=== PATIENT | male | born 1975 | race Caucasian/White ===

== ENCOUNTER → 2018-01-16 14:37 | Outpatient (CLI) | payer OTHER, SELFPAY ==
--- NOTE | 2018-01-16 | DI.RAD.S_ITS ---
PROCEDURE: XR HIP W PEL IF DONE RT 2V INDICATIONS: RIGHT HIP PAIN TECHNIQUE: AP pelvis with lateral view(s) of the right hip(s). COMPARISON: None. FINDINGS: Bones: No fracture or suspicious bone lesion. Pelvic rim is intact. Sacroiliac and hip joint spaces appear maintained. Soft tissues: The visualized bowel gas pattern is normal. No suspicious soft tissue calcifications. Surgical clips in the scrotum. Pelvic phleboliths. IMPRESSION: No acute bony abnormality. Source of hip pain not seen. Dictated by: Lorenzo Wahl M.D. on 01/16/2018 at 15:13 Approved by: Lorenzo Wahl M.D. on 01/16/2018 at 15:14
== END ==
PROVIDERS: Visit Provider Family Medicine
DX: M25.551 Pain in right hip (principal)
CPT/HCPCS: 73502

== ENCOUNTER → 2020-08-30 17:33 | Outpatient (CLI) | payer OTHER, SELFPAY ==
[2020-08-30 18:08] LABS: COVID19 -Nasal RAPID Negative (Negative)
== END ==
PROVIDERS: Visit Provider Physician Assistant
DX: Z20.822 Contact with and (suspected) exposure to COVID-19 (principal); J02.9 Acute pharyngitis, unspecified; R50.9 Fever, unspecified; R51.9 Headache, unspecified; R52 Pain, unspecified
CPT/HCPCS: 87635

== ENCOUNTER 2024-05-19 11:43 | Day surgery (SDC) | payer OTHER, SELFPAY ==
[2024-05-19 12:02] VITALS: BP 109/71; PULSE 69; RESP 14; TEMP 36.4; O2SAT 97
--- NOTE | 2024-05-19 13:25 | PM.PREOP ---
Pre-operative Note Interval Note History & Physical reviewed/Exam performed by Physician: Yes Changes to H&P: No
[2024-05-19 13:40] VITALS: BP 116/82; PULSE 66; RESP 12; TEMP 36.6; O2SAT 95
[2024-05-19 13:45] VITALS: BP 115/82; PULSE 61; RESP 14; O2SAT 97
--- NOTE | 2024-05-19 13:45 | P.OP_ITS ---
Operative Date/Time/Diagnoses Date of procedure: 05/19/24 Time of procedure: 13:45 Pre-op diagnosis: Internal hemorrhoids Post-op diagnosis: same Procedure & Clinicians Procedure: Hemorrhoidal banding Same procedure as scheduled: Yes Indications: Symptomatic internal hemorrhoids Surgeon: Neville Daley Click Yes if Unassisted: Yes Anesthesia Type: MAC +/- Operative Notes Findings: Grade 2 internal hemorrhoids left lateral and right posterior Specimen(s): none sent Estimated Blood Loss (mL): 0 Procedure in detail: Patient was brought to the procedure room. Monitored anesthesia care was administered. He was positioned in the left lateral decubitus position. Time- out performed. Anoscope was inserted demonstrated grade 2 internal hemorrhoids in the left lateral and right posterior position. Each pedicle was grasped with a suction and then doubly ligated at its base. He tolerated the procedure well and transferred to recovery in stable condition. Complications: none Post-operative Disposition: same day surgery
--- NOTE | 2024-05-19 13:54 | SUR.PHASEII ---
Order from Dr Singh for zofran for nausea.
[2024-05-19 14:00] VITALS: BP 127/90; PULSE 54; RESP 12; TEMP 36.3; O2SAT 98
[2024-05-19] MEDS: ONDANSETRON 4 MG/2 ML INJ IV (14:02)
== END 2024-05-19 14:24 | disposition home or self-care (01) ==
PROVIDERS: PCP Family Medicine; Referring Provider Surgery; Visit Provider Surgery
PROC: 0DJD8ZZ Inspection of Lower Intestinal Tract, Via Natural or Artificial Opening Endoscopic (ICD-10-PCS; CPT 45378; principal; 2024-05-19 12:45)
DX: K64.1 Second degree hemorrhoids (principal)
CPT/HCPCS: 46221; J2405; J2704

== ENCOUNTER 2024-09-09 12:20 | Day surgery (SDC) | payer OTHER, SELFPAY ==
[2024-08-27 10:08] VITALS: BMI 25.1
[2024-09-09] VITALS (8 sets, daily range): BP systolic 100–115; BP diastolic 67–83; PULSE 63–95; RESP 7–20; TEMP 36–36.6; O2SAT 92–96; BMI 25.5
[2024-09-09] MEDS: LACTATED RINGERS 1,000 ML 42 ML IV (12:40)
[2024-09-09] MEDS: ACETAMINOPHEN 325 MG TABLET 975 MG PO (12:40)
--- NOTE | 2024-09-09 12:59 | PM.PREOP ---
Pre-operative Note COVID-19 COVID-19 status: Not tested Interval Note History & Physical reviewed/Exam performed by Physician: Yes Changes to H&P: No ASA Class (for procedural sedation): I
--- NOTE | 2024-09-09 13:45 | SUR.OPER ---
Prone on padded OR bed, head in foam head support, gel chest rolls, gel pad under knees, pillow under lower legs, toes free of pressure, arms secured on padded arm boards at <90 degrees abduction. Safety belt at thigh.
[2024-09-09] MEDS: ONABOTULINUMTOXINA 100 UNIT VIAL INJ (13:48)
[2024-09-09] MEDS: BUPIVACAINE 0.5% W/ EPI (PF) 10 ML VIAL 30 ML INJ (13:51)
--- NOTE | 2024-09-09 14:11 | PM.OP.1 ---
Operative Date/Time/Diagnoses Date of procedure: 09/09/24 Time of procedure: 14:11 Pre-op diagnosis: Anal fissure Post-op diagnosis: same Procedure & Clinicians Procedure: Examination under anesthesia and injection of botulinum toxin Same procedure as scheduled: Yes Surgeon: Onel Callahan [employer] Technician: Julito Naqvi Anesthesia Type: General Operative Notes Procedure in detail: The patient was brought to the operating room and general endotracheal anesthesia was induced on the gurney. He was then positioned in prone teresa-knife position. The perineum was prepped and draped in the usual fashion and a time-out was performed. A digital rectal exam was performed with a well lubricated finger. A Hill-Foster retractor was inserted into the anus to inspect the anal canal. There was a distinct posterior midline fissure. We then injected 50 units of botulinum toxin in the right lateral intersphincteric groove and another 50 units of botulinum toxin in the left lateral intersphincteric groove. We then injected about 5 cc of 0.25% Marcaine. The patient was awakened and brought to recovery room. EBL: 5 mL Specimen: None Julito SUÁREZ provided assistance with exposure, retraction and closure of incisions. Post-operative Condition: stable Disposition: PACU
[2024-09-09] MEDS: HYDROMORPHONE 1 MG INJ IV (14:28)
[2024-09-09] MEDS: BENZOCAINE/MENTHOL 1 LOZ PKT 1 EACH PO (14:32)
[2024-09-09] MEDS: KETOROLAC 30 MG/ML VIAL IV (14:32)
--- NOTE | 2024-09-09 14:56 | SUR.PHASEII ---
Noted edema with superficial skin loss to right upper lip. Patient aware.
== END 2024-09-09 15:04 | disposition home or self-care (01) ==
PROVIDERS: PCP Family Medicine; Referring Provider Surgery; Visit Provider Surgery
PROC: (CPT 45990; principal; 2024-09-09 13:30)
DX: K60.2 Anal fissure, unspecified (principal)
CPT/HCPCS: 46505; J0330; J0585; J1100; J1171; J1885; J2405; J2704; J3010